=== PATIENT | female | born 1940 | race Caucasian/White ===

== ENCOUNTER 2016-10-15 05:30 | Inpatient (IN) | payer OTHER ==
[~2016-10-15] VITALS: Ht 160 cm; Wt 57.2 kg
--- NOTE | 2016-10-15 02:58 | NUR ---
F[facility] Pt is sleeping comfortably at this time. No acute distress or sob noted. All needs met at this time. Will continue to monitor. Addendum: 10/16/16 at 0302 by Tesha Brower LVN wrong date
[~2016-10-15 05:30] MED LIST: HYDR12.55 PO; HYDR12.585 PO
[2016-10-15] MEDS ORDERED: ALVIMOPAN 12 MG CAPSULE PO ONE ×3 (05:46→07:00)
[2016-10-15] MEDS ORDERED: cefOXitin SODIUM 2 GM in D5W 100 ML IV ONE (07:00)
[2016-10-15] MEDS ORDERED: ROCURONIUM BROMIDE 10 MG/ML (ZEMURON) IV ONE (07:36)
[2016-10-15] MEDS ORDERED: fentaNYL CITRATE/PF 100 MCG/2 ML AMP IVP ONE (07:36)
[2016-10-15] MEDS ORDERED: MIDAZOLAM HCL 5 MG/5 ML VIAL IVP ONE (07:36)
[2016-10-15] MEDS ORDERED: SEVOFLURANE 15 MIN GAS INH ONE (07:36)
[2016-10-15] MEDS ORDERED: METOCLOPRAMIDE HCL 10 MG/2 ML VIAL IVP ONE (07:36)
[2016-10-15] MEDS ORDERED: LR 1,000 ML IV.SOLN IV ONE (07:36)
[2016-10-15] MEDS ORDERED: PROPOFOL 200MG/ 20ML VIAL (DIPRIVAN) IV ONE (07:36)
[2016-10-15] MEDS ORDERED: KETOROLAC TROMETHAMINE 30 MG VIAL IVP ONE (07:36)
[2016-10-15] MEDS ORDERED: DOPamine PREMIX 400 MG/250 ML BTL IV ONE (07:36)
[2016-10-15] MEDS ORDERED: NS IRRIG SOLN 1000 ML IR ONE (07:36)
[2016-10-15] MEDS ORDERED: MORPHINE SULFATE 10 MG/ML VIAL IVP ONE (07:36)
[2016-10-15] MEDS ORDERED: LR 1,000 ML IV ONE (08:54)
[2016-10-15] MEDS ORDERED: NALOXONE HCL 0.4 MG/ML AMP (NARCAN) IVP PRN (09:00)
[2016-10-15] MEDS ORDERED: fentaNYL CITRATE/PF 100 MCG/2 ML AMP IVP PRN (09:00)
[2016-10-15] MEDS ORDERED: DIPHENHYDRAMINE INJ 50 MG/ML VIAL IVP PRN (09:00)
[2016-10-15] MEDS ORDERED: ePHEDrine sulfate 50 MG/ML VIAL IVP PRN (09:00)
[2016-10-15] MEDS ORDERED: NALBUPHINE HCL 10 MG/ML AMP IVP PRN (09:00)
[2016-10-15] MEDS ORDERED: ONDANSETRON HCL 4 MG/2 ML VIAL IVP PRN ×3 (09:00→09:45)
[2016-10-15] MEDS ORDERED: HYDROcodone/ACETAMIN 5-325 MG TAB (NORCO/ VICODIN) PO PRN ×2 (09:45)
[2016-10-15] MEDS ORDERED: ACETAMINOPHEN 325 MG TABLET PO PRN (09:45)
[2016-10-15 10:01] LABS: HEMATOCRIT 34.4 % (36-48); HEMOGLOBIN 11.5 g/dL (12.0-16.0)
[2016-10-15 10:11] LABS: ANION GAP 6 (5-15); CALCIUM 8.7 mg/dL (8.4-11.0); CHLORIDE 103 mmol/L (98-107); CREATININE 1.08 mg/dL (0.55-1.30); GLUCOSE 153 mg/dL (70-99); POTASSIUM 3.5 mmol/L (3.5-5.1); SODIUM SERUM 134 mmol/L (136-145); UREA NITROGEN, BLOOD 8 mg/dL (8-21)
[2016-10-15 11:07] VITALS: BP 137/67; PULSE 78; RESP 18; TEMP 96; O2SAT 96
--- NOTE | 2016-10-15 11:15 | NUR ---
Initial Note Patient brought to room from PACU. Alert and oriented x4, slightly lethargic. Respirations even and unlabored on room air. Dressing to mid-abdomen clean dry intact. Slight discomfort at this time. IV access patent. Educated patient and family on use and importance of incentive spirometer, encouraged them to remind patient to use. Use of call light reviewed with patient. Fall and safety precautions in place. Bed in lowest and locked position.
[2016-10-15 12:44] VITALS: BP 137/70; PULSE 75; RESP 17; TEMP 98; O2SAT 96
[2016-10-15] MEDS: HYDROmorphone 1 MG INJ. 1 MG/ML AMPUL IVP PRN (13:07)
[2016-10-15] MEDS: D5/0.45 NS 1,000 ML IV SCH ×2 (13:08→21:04)
--- NOTE | 2016-10-15 13:56 | NUR ---
Notes Complaint of pain addressed per MD orders. Patient sleeping, awakens easily. Family at bedside.
--- NOTE | 2016-10-15 15:13 | NUR ---
Notes Patient stated pain is tolerable. Awake and responds quickly. Incentive spirometer use and importance reviewed with patient. Return demonstration provided, correct use shown.
--- NOTE | 2016-10-15 16:04 | NUR ---
CALLED [facility] TO NOTIFY DR CHI THAT PATIENT WAS ADMITTED PER DR AMBER WRIGHT S/W YOSELYN IN DR HUDSON OFFICE @[id number]
[2016-10-15 16:08] VITALS: BP 140/62; PULSE 73; RESP 17; TEMP 98; O2SAT 98
[2016-10-15 16:51] VITALS: BP 140/62; PULSE 73
--- NOTE | 2016-10-15 18:39 | NUR ---
Closing Note Patient need met throughout shift. Remained free of acute distress. Pain addressed per MD orders. Correct use of IS demonstrated throughout shift. Dressing remained clean dry and intact. Good urine output noted. Will continue to monitor until patient care is endorsed to oncoming shift nurse.
[2016-10-15 19:40] VITALS: BP 120/71; PULSE 82; RESP 18; TEMP 97; O2SAT 97
--- NOTE | 2016-10-15 19:40 | NUR ---
Initial Notes Pt is A/Ox4. Pt is pleasant and cooperative. Pt states mild mid abdominal discomfort but tolerable at this time. Mid abdominal dressing noted, clean, dry, intact. Pt denies any N/V. No acute distress noted. VSS. IV intact. Plan of care discussed with pt, pt verbalized understanding. F/C noted in place and draining well to gravity. I/S at bedside. Importance of I/S discussed with pt and pt aware of importance with preventing PNA and helping to expand lungs. Also encouraged pt to take deep breaths while in bed. Pt noted to use 1250cc of inspired breathing effort from I/S. Safety precautions in place, side rails up x3, with bed in lowest, locked position, with bed alarm on at all times. Call light in hand. Will continue to monitor.
[2016-10-15] MEDS: FAMOTIDINE PF 20 MG/2 ML VIAL IVP SCH (20:53)
[2016-10-15] MEDS: cefOXitin SODIUM 2 GM in D5W 100 ML IV SCH (20:54)
[2016-10-15] MEDS: ALVIMOPAN 12 MG CAPSULE PO SCH (21:21)
--- NOTE | 2016-10-15 22:15 | NUR ---
Rounds Pt is resting comfortably in bed. Denies any pain or sob at this time. Call light in hand. Will continue to monitor.
[2016-10-16 00:09] VITALS: BP 127/52; PULSE 82; RESP 18; TEMP 96.9; O2SAT 99
--- NOTE | 2016-10-16 00:30 | NUR ---
PATIENT RESTING: Patient resting quietly. No acute distress noted. Vital signs within normal range. Call light in hand. Will continue to monitor.
--- NOTE | 2016-10-16 03:02 | NUR ---
Rounds Pt is sleeping comfortably at this time. No acute distress or sob noted. All needs met at this time. Will continue to monitor.
[2016-10-16 03:23] VITALS: BP 126/67; PULSE 79; RESP 18; TEMP 96.7; O2SAT 94
[2016-10-16 04:07] VITALS: TEMP 96.7
[2016-10-16] MEDS: HYDROmorphone 1 MG INJ. 1 MG/ML AMPUL IVP PRN (04:40)
--- NOTE | 2016-10-16 04:44 | NUR ---
PAIN Pt. c/o severe pain to abdomen. Pt. medicated with Dilaudid 1mg IVP as ordered PRN for severe pain. See EMAR. Educated pt. regarding medication and potential side effects. Pt. verbalized understanding and is able to teach back. Safety and fall precautions in place. IVF infusing as ordered. Denies any needs at this time. Encouraged pt. to use call light for assistance. Will continue to monitor.
[2016-10-16] MEDS: D5/0.45 NS 1,000 ML IV SCH ×2 (05:39→18:11)
--- NOTE | 2016-10-16 06:57 | NUR ---
Closing Notes Pt is sleeping comfortably this time. No acute distress or sob noted. Mid abdominal dressing, clean, dry and intact. VSS. IV intact. All needs met throughout shift. Will endorse care to am nurse. Call light within reach. Will continue to monitor.
[2016-10-16 07:04] LABS: BASOPHILS % (AUTO) 0.2 % (0.0-2.0); EOSINOPHILS % (AUTO) 0.1 % (0.0-4.0); HEMATOCRIT 33.9 % (36-48); HEMOGLOBIN 11.3 g/dL (12.0-16.0); LYMPHOCYTES # (AUTO) 1.1 K/uL (1.0-5.5); LYMPHOCYTES % (AUTO) 12.6 % (20.5-51.5); MEAN CORPUSCULAR HEMOGLOBIN 28 pg (27-31); MEAN CORPUSCULAR HGB CONC 33 % (32-36); MEAN CORPUSCULAR VOLUME 85 fL (79.0-98.0); MONOCYTES # (AUTO) 1.2 K/uL (0.0-1.0); MONOCYTES % (AUTO) 13.5 % (1.7-9.3); NEUTROPHILS # (AUTO) 6.8 K/uL (1.8-7.7); NEUTROPHILS % (AUTO) 73.6 % (40.0-70.0); PLATELET COUNT (AUTO) 248 K/uL (130-430); RED BLOOD CELL COUNT(AUTO) 4.01 MIL/uL (4.2-6.2); RED CELL DISTRIBUTION WIDTH 13.5 % (9.0-15.0); WHITE BLOOD COUNT (AUTO) 9.1 K/uL (4.8-10.8)
[2016-10-16 07:24] LABS: ALANINE AMINOTRANSFERASE 14 U/L (12-78); ALBUMIN 2.8 g/dL (3.4-4.8); ANION GAP 4 (5-15); ASPARTATE AMINOTRANSFERASE 21 U/L (10-37); CALCIUM 8.3 mg/dL (8.4-11.0); CHLORIDE 100 mmol/L (98-107); CREATININE 0.85 mg/dL (0.55-1.30); GLUCOSE 155 mg/dL (70-99); POTASSIUM 3.6 mmol/L (3.5-5.1); SODIUM SERUM 131 mmol/L (136-145); TOTAL BILIRUBIN 0.4 mg/dL (0.0-1.0); TOTAL PROTEIN, SERUM 6.3 g/dL (6.4-8.3); UREA NITROGEN, BLOOD 8 mg/dL (8-21)
--- NOTE | 2016-10-16 08:00 | NUR ---
Initial Note Patient alert and oriented x4. Respirations even and unlabored on room air. Dressing to mid-abdomen clean dry intact. Tolerable discomfort at this time. IV access patent. Educated patient and family on use and importance of incentive spirometer, encouraged them to remind patient to use. Use of call light reviewed with patient. Fall and safety precautions in place. Bed in lowest and locked position.
--- NOTE | 2016-10-16 09:02 | NUR ---
Nutrition Update Lincoln Scale 17 noted. Pt admitted for malignant neoplasm of colon, unspecified. Diet: NPO BMI: 22.3 kg/m2 RD to follow per nutrition care standards.
[2016-10-16] MEDS: ALVIMOPAN 12 MG CAPSULE PO SCH ×2 (10:30→21:10)
[2016-10-16] MEDS: FAMOTIDINE PF 20 MG/2 ML VIAL IVP SCH ×2 (10:30→21:42)
[2016-10-16] MEDS: ENOXAPARIN SODIUM 30 MG/0.3 ML SYRINGE SUBCUT SCH (10:31)
[2016-10-16] MEDS: cefOXitin SODIUM 2 GM in D5W 100 ML IV SCH (10:32)
--- NOTE | 2016-10-16 11:15 | NUR ---
Notes Patient has seen Dr. Calloway at bedside. Plan of care reviewed. Ice chips are ok to give per Dr. Calloway. Patient denies distress and discomfort is tolerable.
[2016-10-16 12:00] VITALS: BP 126/64; PULSE 72; RESP 18; TEMP 96.7; O2SAT 94
--- NOTE | 2016-10-16 14:42 | NUR ---
Notes Patient has been seen by PT. Per patient gait is steady and was able to ambulate approximately 50 feet.
[2016-10-16 17:58] VITALS: BP 122/66; PULSE 70; RESP 18; TEMP 97; O2SAT 94
[2016-10-16] MEDS: METOCLOPRAMIDE HCL 10 MG/2 ML VIAL IVP SCH (18:12)
--- NOTE | 2016-10-16 18:48 | NUR ---
CLosing Notes Assisted patient to walk in hallway with use of FWW and one person assist. Gait steady. No distress or intolerable pain. Patient now in bed resting. No acute distress noted. Patient tolerating clear liquid diet well. Will continue to monitor until patient care is endorsed to oncoming shift nurse.
[2016-10-16 19:40] VITALS: BP 143/73; PULSE 86; RESP 18; TEMP 97; O2SAT 95
--- NOTE | 2016-10-16 22:30 | NUR ---
PATIENT RESTING: Patient resting quietly. No acute distress noted. Vital signs within normal range. Call light in hand. Will continue to monitor.
--- NOTE | 2016-10-17 00:30 | NUR ---
Rounds Pt is sleeping comfortably at this time. No acute distress or sob noted. VSS. IV intact. Call light in hand. Will continue to monitor.
[2016-10-17] MEDS: METOCLOPRAMIDE HCL 10 MG/2 ML VIAL IVP SCH ×3 (00:45→11:58)
[2016-10-17 01:07] VITALS: BP 134/71; PULSE 82; RESP 16; TEMP 96.9; O2SAT 95
--- NOTE | 2016-10-17 02:30 | NUR ---
Rounds Pt is sleeping at this time in stable condition. No changes. Call light in hand. Will continue to monitor.
[2016-10-17 04:00] VITALS: BP 143/78; PULSE 89; RESP 18; TEMP 96.8; O2SAT 95
--- NOTE | 2016-10-17 04:30 | NUR ---
PATIENT RESTING: Patient resting quietly. No acute distress noted. Vital signs within normal range.
[2016-10-17] MEDS: D5/0.45 NS 1,000 ML IV SCH (06:07)
[2016-10-17 06:35] LABS: BASOPHILS % (AUTO) 0.3 % (0.0-2.0); EOSINOPHILS % (AUTO) 0.3 % (0.0-4.0); HEMATOCRIT 32.5 % (36-48); LYMPHOCYTES # (AUTO) 1.1 K/uL (1.0-5.5); LYMPHOCYTES % (AUTO) 16.1 % (20.5-51.5); MEAN CORPUSCULAR HEMOGLOBIN 28 pg (27-31); MEAN CORPUSCULAR HGB CONC 34 % (32-36); MEAN CORPUSCULAR VOLUME 83 fL (79.0-98.0); MONOCYTES % (AUTO) 15.1 % (1.7-9.3); NEUTROPHILS # (AUTO) 4.6 K/uL (1.8-7.7); NEUTROPHILS % (AUTO) 68.2 % (40.0-70.0); PLATELET COUNT (AUTO) 227 K/uL (130-430); RED BLOOD CELL COUNT(AUTO) 3.92 MIL/uL (4.2-6.2); RED CELL DISTRIBUTION WIDTH 13.5 % (9.0-15.0); WHITE BLOOD COUNT (AUTO) 6.7 K/uL (4.8-10.8)
[2016-10-17 06:45] LABS: CALCIUM 8.4 mg/dL (8.4-11.0); CREATININE 0.77 mg/dL (0.55-1.30); GLUCOSE 123 mg/dL (70-99); UREA NITROGEN, BLOOD 4 mg/dL (8-21)
--- NOTE | 2016-10-17 06:54 | NUR ---
Closing Notes Pt is awake, denies any pain or sob. Pt in stable condition. No acute distress or sob noted. Mid abdominal dressing noted with small amount of dry red blood, no active bleeding noted. VSS. IV intact. All needs met throughout shift. Will endorse care to am nurse. Call light within reach. Will continue to monitor.
--- NOTE | 2016-10-17 07:35 | NUR ---
am rounds: patient on the bed,awake,alert and oriented x4. with midline incision dressing dry and intact. with ivf on going at left forearm intact. denies any pain. continue to monitor.
--- NOTE | 2016-10-17 07:50 | NUR ---
Bowel movement/Urinated Pt stated that she was assisted to restroom by FIRST OFFICER and that she was able to urinate s/p d/c of Hi catheter and that she had a small bowel movement with pieces of particles. Will endorse information to day nurse.
[2016-10-17 08:09] LABS: SODIUM SERUM 135 mmol/L (136-145)
[2016-10-17 08:10] LABS: ANION GAP 3 (5-15); CHLORIDE 104 mmol/L (98-107); POTASSIUM 3.5 mmol/L (3.5-5.1)
[2016-10-17 09:47] VITALS: BP 150/79; PULSE 87; RESP 19; TEMP 97.6; O2SAT 97
[2016-10-17] MEDS: ALVIMOPAN 12 MG CAPSULE PO SCH (09:47)
[2016-10-17] MEDS: ENOXAPARIN SODIUM 30 MG/0.3 ML SYRINGE SUBCUT SCH (09:47)
[2016-10-17] MEDS: FAMOTIDINE PF 20 MG/2 ML VIAL IVP SCH (09:47)
--- NOTE | 2016-10-17 09:53 | NUR ---
physical therapy: pt ambulated to the hallway with physical therapist assistance. with steady gait.
--- NOTE | 2016-10-17 09:54 | NUR ---
transfer room: pt transferred to room 128A.
[2016-10-17 12:00] VITALS: BP 147/74; PULSE 84; RESP 18; TEMP 97.9; O2SAT 97
--- NOTE | 2016-10-17 12:02 | NUR ---
rounds: sitting on the chair, iv reglan given as ordered.
--- NOTE | 2016-10-17 12:53 | NUR ---
surgeon rounds: patient seen by dr brenda odonnell with orders dc home this afternoon.on regular diet.may shower in am.dressing to abdominal wound if positive bleeding. see dr brenda odonnell in 1 week. dressing removed by dr brenda odonnell,open to air ,with aiyana and x 2 steri strips at lower abd incision.
[2016-10-17 13:28] VITALS: BP 145/79; PULSE 83; RESP 18; TEMP 97.1; O2SAT 97
--- NOTE | 2016-10-17 14:15 | NUR ---
dc notes: transitional care documents and prescriptions given to patient. personal belongings checked and sent home with the patient. iv removed,dry gauze applied,no bleeding noted. mid abdominal incision ,with aiyana intact,2 steri strips on lower abd incision,rest open to air. no active bleeding noted. patient wheeled by die try out worker stamping to the lobby and accompanied home by her daughter ,pt in stable condition.
--- NOTE | 2016-10-17 14:45 | NUR ---
PHYSICAL THERAPY CO-SIGN The Physical Therapy Progress Notes documented by [employer] Crane Operator have been reviewed. Reviewed/Co-Signed by: Stephanie Chen, PT Documentation Done by: Rich Joe PTA I concur with the documentation of this UNIT CONTROL WORKER. Plan: continue PT as per plan of care. Addendum: 10/17/16 at 1544 by Stephanie Chen PT Amended: Links added.
--- NOTE | 2016-10-22 09:38 | NUR ---
Discharge Follow Up Phone Call CONVERTIBLE POWER SHOVEL OPERATOR phoned patient, . Patient stated she was doing well. She has no questions or concerns. Patient has a follow up appointment with Dr Jain on 10/24/16. No further follow up calls needed.
== END 2016-10-17 14:15 | disposition home or self-care (01) | DRG 331 ==
LOC: SMU 05:30
PROVIDERS: ADMIT Colon & Rectal Surgery; ATTEND Colon & Rectal Surgery
PROC: 0DBN4ZZ Excision of Sigmoid Colon, Percutaneous Endoscopic Approach (ICD-10-PCS; 2016-10-15)
PROC: 0DJD8ZZ Inspection of Lower Intestinal Tract, Via Natural or Artificial Opening Endoscopic (ICD-10-PCS; 2016-10-15)
PROC: 0DBP4ZZ Excision of Rectum, Percutaneous Endoscopic Approach (ICD-10-PCS; principal; 2016-10-15 07:30)
DX: C19 Malignant neoplasm of rectosigmoid junction (principal); F41.9 Anxiety disorder, unspecified; I12.9 Hypertensive chronic kidney disease with stage 1 through stage 4 chronic kidney disease, or unspecified chronic kidney disease; N18.2 Chronic kidney disease, stage 2 (mild); M19.90 Unspecified osteoarthritis, unspecified site; Z90.710 Acquired absence of both cervix and uterus; Z82.49 Family history of ischemic heart disease and other diseases of the circulatory system; Z82.0 Family history of epilepsy and other diseases of the nervous system
CPT/HCPCS: 36415; 80048; 80053; 85018-TC; 85025; 87081; 88305; 88309; 94010; 97110-GP; 97116-GP; 97530-GP; J0694; J1170; J1265; J1650; J1885; J2250; J2270; J2405; J2704; J2765; J3010; J3490; J7060; J7120

== ENCOUNTER 2016-10-29 06:54 | Emergency (ER) | payer OTHER ==
[~2016-10-29] VITALS: Ht 160 cm; Wt 59.0 kg
[~2016-10-29 06:54] MED LIST changes: -HYDR12.55 PO
[2016-10-29 07:06] VITALS: BP_SYST 147
[2016-10-29 07:40] VITALS: BP_SYST 147
== END 2016-10-29 07:40 | disposition home or self-care (01) ==
LOC: SED 06:54
DX: Z48.01 Encounter for change or removal of surgical wound dressing (principal); C18.9 Malignant neoplasm of colon, unspecified
CPT/HCPCS: 99281

== ENCOUNTER 2016-11-08 16:01 | Emergency (ER) | payer OTHER ==
[~2016-11-08] VITALS: Ht 160 cm; Wt 56.7 kg
[2016-11-08 16:05] VITALS: BP_SYST 125
[2016-11-08] MEDS ORDERED: NACL 0.9% 1,000 ML IV ONE (16:20)
[2016-11-08] MEDS ORDERED: MORPHINE 2 MG/ML INJ. SYRINGE IVP ONE (16:30)
[2016-11-08] MEDS ORDERED: ONDANSETRON HCL 4 MG/2 ML VIAL IVP ONE (16:30)
[2016-11-08 16:43] LABS: BASOPHILS # (AUTO) 0.1 K/uL (0.0-0.2); BASOPHILS % (AUTO) 0.9 % (0.0-2.0); EOSINOPHILS # (AUTO) 0.1 K/uL (0.0-0.4); EOSINOPHILS % (AUTO) 1.6 % (0.0-4.0); HEMATOCRIT 35.5 % (36-48); HEMOGLOBIN 11.7 g/dL (12.0-16.0); LYMPHOCYTES # (AUTO) 1.3 K/uL (1.0-5.5); MEAN CORPUSCULAR HEMOGLOBIN 28 pg (27-31); MEAN CORPUSCULAR HGB CONC 33 % (32-36); MEAN CORPUSCULAR VOLUME 86 fL (79.0-98.0); MONOCYTES # (AUTO) 0.6 K/uL (0.0-1.0); MONOCYTES % (AUTO) 10.7 % (1.7-9.3); NEUTROPHILS # (AUTO) 3.7 K/uL (1.8-7.7); NEUTROPHILS % (AUTO) 63.8 % (40.0-70.0); PLATELET COUNT (AUTO) 264 K/uL (130-430); RED BLOOD CELL COUNT(AUTO) 4.16 MIL/uL (4.2-6.2); RED CELL DISTRIBUTION WIDTH 13.5 % (9.0-15.0); WHITE BLOOD COUNT (AUTO) 5.8 K/uL (4.8-10.8)
[2016-11-08 16:56] LABS: PROTHROMBIN TIME 11.3 SECS (9.5-12.5)
[2016-11-08 17:30] LABS: ANION GAP 5 (5-15); CALCIUM 9.6 mg/dL (8.4-11.0); CHLORIDE 106 mmol/L (98-107); CREATININE 0.93 mg/dL (0.55-1.30); GLUCOSE 127 mg/dL (70-99); POTASSIUM 3.5 mmol/L (3.5-5.1); SODIUM SERUM 137 mmol/L (136-145); UREA NITROGEN, BLOOD 13 mg/dL (8-21)
[2016-11-08 17:34] LABS: ALANINE AMINOTRANSFERASE 13 U/L (12-78); ALBUMIN 3.5 g/dL (3.4-4.8); ASPARTATE AMINOTRANSFERASE 19 U/L (10-37); LIPASE 200 U/L (73-393); TOTAL BILIRUBIN 0.6 mg/dL (0.0-1.0); TOTAL PROTEIN, SERUM 7.4 g/dL (6.4-8.3)
[2016-11-08] MEDS ORDERED: IOHEXOL 100 ML IV ONE (17:53)
[2016-11-08 19:17] LABS: BILIRUBIN,URINE NEGATIVE (NEGATIVE); BLOOD, URINE NEGATIVE (NEGATIVE); CLARITY/URINE CLEAR (CLEAR); COLOR,URINE YELLOW (YELLOW); GLUCOSE,URINE NEGATIVE (NEGATIVE); KETONES,URINE NEGATIVE (NEGATIVE); LEUKOCYTE ESTERASE ,URINE NEGATIVE (NEGATIVE); NITRITE, URINE NEGATIVE (NEGATIVE); PROTEIN URINE NEGATIVE (NEGATIVE); UROBILINOGEN,URINE 0.2 (0.2-1.0)
[2016-11-08 19:30] VITALS: BP_SYST 122
== END 2016-11-08 19:30 | disposition home or self-care (01) ==
LOC: SED 16:01
DX: R10.9 Unspecified abdominal pain (principal); I10 Essential (primary) hypertension; Z90.49 Acquired absence of other specified parts of digestive tract
CPT/HCPCS: 36415; 74177; 80053; 81003; 83605; 83690; 85025; 85610; 85730; 87040; 87086; 96361; 96374; 96375; 99285; J2270; J2405; J7030; Q9967